=== PATIENT | female | born 1990 | race African-American/Black ===

== ENCOUNTER 2022-08-06 17:49 | Emergency (ER) | payer SELFPAY | END 2022-08-06 18:50 | disposition home or self-care (01) | LOC: JD.ED 17:49 | DX: K08.89 Other specified disorders of teeth and supporting structures (principal); F17.210 Nicotine dependence, cigarettes, uncomplicated; Z79.899 Other long term (current) drug therapy; Z90.49 Acquired absence of other specified parts of digestive tract | CPT/HCPCS: 99282 ==

== ENCOUNTER 2022-10-03 16:55 | Emergency (ER) | payer SELFPAY ==
[2022-10-03] MEDS ORDERED: Ondansetron 4 MG/2 ML SDV IVPUSH ONE (18:55)
[2022-10-03] MEDS ORDERED: HYDROmorphone 1 MG/ML Syringe IVPUSH STA (18:55)
[2022-10-03] MEDS ORDERED: Sodium Chloride 0.9% 1,000 ML IV SCH (19:00)
[2022-10-03] MEDS ORDERED: cefTRIAXone 2 GM in Sodium Chloride 0.9% 100 ML IV ONE (20:13)
== END 2022-10-03 21:56 | disposition home or self-care (01) ==
LOC: JD.ED 16:55 → MERGE 16:55 → JD.ED 21:56
DX: N39.0 Urinary tract infection, site not specified (principal)
CPT/HCPCS: 36415; 74176; 80053; 81001; 81025; 84703; 85025; 87086; 87088; 87186; 96361; 96365; 96375; 99284; J0696; J1170; J2405; J7030